=== PATIENT | male | born 1985 | race Caucasian/White ===

== ENCOUNTER 2024-04-30 18:43 | Emergency (ER) | payer OTHER ==
[~2024-04-30] VITALS: Ht 180.3 cm; Wt 87.1 kg
[~2024-04-30 18:43] MED LIST: AMOX500 PO; HYDACE5 PO; OTC COUGH MEDS; RXAMOX500 PO; [UNRECOGNIZED DRUG - OTHER]
[2024-04-30] MEDS ORDERED: Imitrex100 MG PO (18:52)
[2024-04-30 19:59] LABS: CORONAVIRUS COVID-19 AG Negative (NEGATIVE); INFLUENZA A AG Negative (NEGATIVE); INFLUENZA B AG Negative (NEGATIVE)
== END 2024-04-30 20:38 | disposition other institution (70) ==
LOC: ER 18:43
PROVIDERS: Student in an Organized Health Care Education/Training Program
DX: R05.9 Cough, unspecified (principal); Z91.013 Allergy to seafood; Z91.018 Allergy to other foods; Z79.899 Other long term (current) drug therapy
CPT/HCPCS: 71046; 87428-QW; 99283-25